=== PATIENT | female | born 1965 ===

== ENCOUNTER 2018-12-30 19:03 | Inpatient (IN) | payer MEDICAID ==
[2018-12-30 19:41] VITALS: BMI 60.0
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
[2018-12-30 21:39] LABS: MEAN CELL VOLUME 84.2 fl (80.0-105.0); MEAN CORPUSCULAR HEMOGLOBIN 27.3 pg (25.0-35.0); MEAN CORPUSCULAR HGB CONC 32.4 g/dl (31.0-37.0); MEAN PLATELET VOLUME 11.4 fl (7.0-11.0); RBC 4.76 10^6/uL (3.5-6.1); RED CELL DISTRIBUTION WIDTH 13.7 % (11.5-14.5); WHITE BLOOD COUNT 8.8 10^3/uL (4.5-11.0)
[2018-12-30 21:52] LABS: ALB/GLOB RATIO 1.1 (1.1-1.8); ALBUMIN 4.1 g/dL (3.0-4.8); ALT/SGPT 11 U/L (7-56); AST/SGOT 24 U/L (14-36); BLOOD UREA NITROGEN 20 mg/dL (7-21); CALCIUM 9.4 mg/dL (8.4-10.5); GFR NON-AFRICAN AMERICAN > 60
[2018-12-30 22:20] LABS: BENZODIAZEPINES, UR NEGATIVE (NEGATIVE)
[2018-12-30 22:24] LABS: BARBITURATES, UR NEGATIVE (NEGATIVE); OPIATES, UR NEGATIVE (NEGATIVE); PHENCYCLIDINE, UR NEGATIVE (NEGATIVE)
[2018-12-31 03:13] LABS: PH,URINE 6.5 (4.7-8.0); URINE BILIRUBIN NEGATIVE (NEGATIVE); URINE BLOOD NEGATIVE (NEGATIVE); URINE GLUCOSE (UA) NEGATIVE (NEGATIVE); URINE LEUKOCYTE ESTERASE NEGATIVE Leu/uL (NEGATIVE); URINE PROTEIN NEGATIVE mg/dL (<30 mg/dL); URINE UROBILINOGEN 0.2 E.U./dL (<1 E.U./dL)
[2018-12-31 03:17] LABS: URINE APPEARANCE CLEAR (CLEAR); URINE COLOR YELLOW (YELLOW)
[2018-12-31] MEDS ORDERED: Magnesium Hydroxide Susp 30 ml UD PO PRN (03:34)
[2018-12-31] MEDS ORDERED: Alum-Mag Hydrox-Simethicone Susp (30 mL) PO PRN (03:34)
--- NOTE | 2018-12-31 04:18 | PCM.BM ---
<Rosmery Nelson - Last Filed: 12/31/18 04:15> Treatment Plan Problems - Problems identified on initial assessmt Ineffective Coping Date Initiated: 12/31/18 Time Initiated: 04:16 Assessment reference: NA Status: Active High risk of Violence Date Initiated: 12/31/18 Time Initiated: 04:17 Assessment reference: NA Status: Active Auditory Hallucination Date Initiated: 12/31/18 Time Initiated: 04:17 Assessment reference: NA Status: Active Visiual Hallucination Date Initiated: 12/31/18 Time Initiated: 04:18 Assessment reference: NA Status: Active Self Care Deficit Date Initiated: 12/31/18 Time Initiated: 04:19 Assessment reference: NA Status: Active <Cynthia Rush - Last Filed: 12/31/18 10:25> - Diagnosis (1) Schizoaffective disorder Status: Acute Interventions: Zoloft 150 mg po daily for depression and anxiety (recently increased from 100 mg po daily on 12/12/18) * Will not restart risperdal, will start Abilify 5 mg po HS as this will help with mood control and depression. * Klonopin 0.5 mg po AMHS for anxiety prn. * Trazodone 100 mg po HS for insomnia 12/31/18 10:25 <Ophelia Wong - Last Filed: 01/03/19 10:31>
[2018-12-31 04:28] VITALS: O2SAT 97
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
[2018-12-31 07:54] LABS: GLUCOSE,FASTING 124 mg/dL (65-110); HDL CHOLESTEROL 46 mg/dL (29-60)
[2018-12-31 08:05] LABS: LDL CHOLESTEROL 86 mg/dL (0-129)
--- NOTE | 2018-12-31 08:24 | RAD ---
Date of service: 12/30/2018 HISTORY: medical clearance COMPARISON: No prior. TECHNIQUE: 1 view obtained. FINDINGS: LUNGS: No active pulmonary disease. PLEURA: No significant pleural effusion identified, no pneumothorax apparent. CARDIOVASCULAR: No aortic atherosclerotic calcification present. Normal cardiac size. No pulmonary vascular congestion. OSSEOUS STRUCTURES: No significant abnormalities. VISUALIZED UPPER ABDOMEN: Normal. OTHER FINDINGS: None. IMPRESSION: No active disease.
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
[2018-12-31] MEDS ORDERED: Dextrose 50% SYRINGE Inj (50 ml) IV PRN (11:49)
[2018-12-31] MEDS ORDERED: Albuterol-Ipratrop 3 mg / 0.5 (3 ml) UD IH PRN (11:50)
[2018-12-31] MEDS ORDERED: Albuterol HFA 90 mcg/actuation (8 g) IH PRN (11:52)
[2018-12-31] MEDS: Insulin Lispro (humaLOG) LOW Coverage SC SCH ×2 (16:47→22:16)
[2018-12-31] MEDS: Calcium-Vit D 250 mg-125 Units Tab UD PO SCH (17:10)
--- NOTE | 2018-12-31 18:59 | CARD ---
APPROVED REPORT Date of service: 12/30/2018 EKG Measurement Heart [id number] <Conclusion> Normal sinus rhythm Normal ECG
[2019-01-01 07:37] LABS: BASO # 0.04 K/mm3 (0.0-2.0); BASO % 0.6 % (0.0-3.0); EOS # 0.2 (0.0-0.7); EOS % 2.9 % (1.5-5.0); HEMOGLOBIN 12.3 g/dL (12.0-16.0); LYMPH # 2.7 (1.2-3.4); LYMPH % 41.5 % (22.0-35.0); MEAN CELL VOLUME 85.1 fl (80.0-105.0); MEAN CORPUSCULAR HEMOGLOBIN 26.9 pg (25.0-35.0); MEAN CORPUSCULAR HGB CONC 31.6 g/dl (31.0-37.0); MONO # 0.4 (0.1-0.6); MONO % 5.9 % (1.0-6.0); RBC 4.57 10^6/uL (3.5-6.1); RED CELL DISTRIBUTION WIDTH 13.8 % (11.5-14.5); WHITE BLOOD COUNT 6.6 10^3/uL (4.5-11.0)
[2019-01-01 07:58] LABS: LDL CHOLESTEROL 89 mg/dL (0-129)
[2019-01-01 07:59] LABS: ALB/GLOB RATIO 1.1 (1.1-1.8); ALT/SGPT 19 U/L (7-56); AST/SGOT 21 U/L (14-36); BLOOD UREA NITROGEN 19 mg/dL (7-21); CALCIUM 9.5 mg/dL (8.4-10.5); GFR NON-AFRICAN AMERICAN > 60; HDL CHOLESTEROL 44 mg/dL (29-60)
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
[2019-01-01] MEDS: Insulin Lispro (humaLOG) LOW Coverage SC SCH ×4 (09:41→22:00)
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
[2019-01-01] MEDS: Cholecalciferol 1,000 INTLU TAB PO SCH (11:15)
[2019-01-01] MEDS: Calcium-Vit D 250 mg-125 Units Tab UD PO SCH ×2 (11:40→17:28)
[2019-01-01] MEDS: Nystatin 100,000 Units/gm Topical Pow(15 gm) TOP SCH (12:15)
[2019-01-01] MEDS: Insulin Detemir 100 units/ml Vial (Levemir) SC SCH (16:40)
[2019-01-02] MEDS: Calcium-Vit D 250 mg-125 Units Tab UD PO SCH ×2 (07:13→16:59)
[2019-01-02] MEDS ORDERED: Insulin Lispro (HUMAlog) HIGH Coverage SC SCH (07:30)
[2019-01-02] MEDS: Insulin Lispro (humaLOG) LOW Coverage SC SCH ×4 (08:00→21:16)
[2019-01-02] MEDS: Cholecalciferol 1,000 INTLU TAB PO SCH (08:48)
[2019-01-02] MEDS: Nystatin 100,000 Units/gm Topical Pow(15 gm) TOP SCH (09:13)
[2019-01-02] MEDS: Insulin Detemir 100 units/ml Vial (Levemir) SC SCH ×2 (10:30→16:52)
[2019-01-02] MEDS: Insulin Lispro 1 UNITS/0.01 ML SC SCH ×2 (12:33→16:58)
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
[2019-01-03] MEDS: Calcium-Vit D 250 mg-125 Units Tab UD PO SCH ×3 (06:09→17:29)
[2019-01-03 07:18] VITALS: RESP 20
[2019-01-03] MEDS: Cholecalciferol 1,000 INTLU TAB PO SCH (10:15)
[2019-01-03] MEDS: Insulin Detemir 100 units/ml Vial (Levemir) SC SCH ×2 (10:17→17:27)
[2019-01-03] MEDS: Insulin Lispro 1 UNITS/0.01 ML SC SCH ×3 (10:18→17:29)
[2019-01-03] MEDS: Insulin Lispro (humaLOG) LOW Coverage SC SCH ×4 (10:19→21:34)
[2019-01-03] MEDS: Nystatin 100,000 Units/gm Topical Pow(15 gm) TOP SCH (10:20)
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
[2019-01-03 18:03] LABS: URINE BILIRUBIN NEGATIVE (NEGATIVE); URINE BLOOD NEGATIVE (NEGATIVE); URINE GLUCOSE (UA) NEGATIVE (NEGATIVE); URINE LEUKOCYTE ESTERASE TRACE Leu/uL (NEGATIVE); URINE PROTEIN NEGATIVE mg/dL (<30 mg/dL); URINE UROBILINOGEN 0.2 E.U./dL (<1 E.U./dL)
[2019-01-03 18:05] LABS: URINE APPEARANCE CLEAR (CLEAR); URINE COLOR LIGHT YELLOW (YELLOW)
[2019-01-04] MEDS: Cholecalciferol 1,000 INTLU TAB PO SCH (09:23)
[2019-01-04] MEDS: Insulin Detemir 100 units/ml Vial (Levemir) SC SCH ×2 (09:24→17:13)
[2019-01-04] MEDS: Calcium-Vit D 250 mg-125 Units Tab UD PO SCH ×2 (09:24→17:11)
[2019-01-04] MEDS: Insulin Lispro (humaLOG) LOW Coverage SC SCH ×4 (09:25→22:33)
[2019-01-04] MEDS: Insulin Lispro 1 UNITS/0.01 ML SC SCH ×3 (09:25→17:12)
[2019-01-04] MEDS: Nystatin 100,000 Units/gm Topical Pow(15 gm) TOP SCH (09:26)
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
--- NOTE | 2019-01-04 19:58 | CON ---
DATE: 01/02/2019 ORTHOPEDIC CONSULTATION REPORT LOCATION: Room 513, bed 1. HISTORY OF PRESENT ILLNESS: The patient is a 53-year-old female, complaining of weakness of her left lower extremity with evidence of postop fasciotomy from approximately three years ago at [facility] for compartment syndrome resulting in; 1. A foot that is contracted with tignness of the heel cord.. 2. It is in an inverted position from imbalance of the dorsiflexor muscles of the left foot and this has a tight heel cord also. I am going to send her to physical therapy as she likes to use the wheelchair too much and she is even getting weaker. So we are going to ask the therapist to do stretching exercises and strengthening exercises to her left lower extremity. At the same time, try to get her fit with a dropfoot brace from Physical Therapy and this is going to take a while because eventually she did nothing else. She is going to need tenden transfer to fix the drop foot of her left foot. 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 made symmetric and in function that is causing inversion of the foot and dorsiflexion and a tight heel cord. PLAN: We will try to help with the therapy and a dropfoot brace. in the future she may consider tendon transfer or a fuseion of the lt ankle because of her weight of obeasity. Boo Vanessa DO [facility]
[2019-01-05 07:12] VITALS: TEMP 98.2
[2019-01-05] MEDS: Insulin Lispro (humaLOG) LOW Coverage SC SCH ×4 (09:18→22:06)
[2019-01-05] MEDS: Insulin Lispro 1 UNITS/0.01 ML SC SCH ×3 (09:27→17:33)
[2019-01-05] MEDS: Insulin Detemir 100 units/ml Vial (Levemir) SC SCH ×2 (10:28→17:35)
[2019-01-05] MEDS: Calcium-Vit D 250 mg-125 Units Tab UD PO SCH ×2 (10:32→17:36)
[2019-01-05] MEDS: Cholecalciferol 1,000 INTLU TAB PO SCH (10:34)
[2019-01-05] MEDS: Nystatin 100,000 Units/gm Topical Pow(15 gm) TOP SCH (10:43)
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
--- NOTE | 2019-01-05 12:28 | RAD ---
Date of service: 01/05/2019 PROCEDURE: Bilateral knees HISTORY: pain knees COMPARISON: TECHNIQUE: Four views FINDINGS: There is joint space narrowing in the medial compartment of the left knee. There is severe patellofemoral degeneration. Multiple bone fragments are also seen in the posterior aspect of the knee joint. Severe patellofemoral degeneration is seen in the right knee. Moderate degenerative changes are seen in the medial and lateral compartments. IMPRESSION: Bilateral osteoarthritis especially in the patellofemoral joint
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
[2019-01-06] MEDS: Insulin Lispro (humaLOG) LOW Coverage SC SCH ×3 (08:28→17:16)
[2019-01-06] MEDS: Insulin Lispro 1 UNITS/0.01 ML SC SCH ×3 (08:50→17:16)
[2019-01-06] MEDS: Cholecalciferol 1,000 INTLU TAB PO SCH (08:53)
[2019-01-06] MEDS: Calcium-Vit D 250 mg-125 Units Tab UD PO SCH ×2 (08:54→17:20)
[2019-01-06] MEDS: Nystatin 100,000 Units/gm Topical Pow(15 gm) TOP SCH (09:24)
[2019-01-06] MEDS: Insulin Detemir 100 units/ml Vial (Levemir) SC SCH ×2 (10:10→17:27)
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
[2019-01-07] MEDS: Insulin Lispro (humaLOG) LOW Coverage SC SCH ×5 (00:05→21:36)
[2019-01-07] MEDS: Insulin Detemir 100 units/ml Vial (Levemir) SC SCH ×2 (07:50→16:30)
[2019-01-07] MEDS: Insulin Lispro 1 UNITS/0.01 ML SC SCH ×3 (07:55→16:30)
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
[2019-01-07] MEDS: Nystatin 100,000 Units/gm Topical Pow(15 gm) TOP SCH (08:50)
[2019-01-07] MEDS: Cholecalciferol 1,000 INTLU TAB PO SCH (08:50)
[2019-01-07] MEDS: Calcium-Vit D 250 mg-125 Units Tab UD PO SCH ×2 (08:50→18:00)
[2019-01-07 10:08] VITALS: BP 130/80; PULSE 78
[2019-01-07] MEDS ORDERED: Magnesium Hydroxide Susp 30 ml UD PO PRN (15:42)
[2019-01-07] MEDS ORDERED: ACETAMINOPHEN PO PRN (15:42)
[2019-01-07] MEDS ORDERED: Albuterol HFA 90 mcg/actuation (8 g) IH SCH (16:00)
[2019-01-07] MEDS ORDERED: [UNRECOGNIZED DRUG - OTHER] PO SCH (16:00)
[2019-01-07] MEDS ORDERED: VITAMIN D3 PO SCH (16:00)
[2019-01-07] MEDS ORDERED: CALCIUM CARBONATE PO SCH (16:00)
[2019-01-08] MEDS ORDERED: Pantoprazole 40 mg EC Tab PO SCH (06:00)
[2019-01-08] MEDS ORDERED: Multivitamin With Minerals Tab PO SCH (08:00)
[2019-01-08] MEDS ORDERED: Non Formulary Medication (Ferrous Sulfate [Feosol] 1 TAB) PO SCH (08:00)
--- NOTE | 2019-01-09 07:39 | PN ---
DATE: 01/07/2019 SUBJECTIVE: A 53-year-old female in room [address] Hyde's service. She is seen by me for the inverting of the right foot from muscle imbalance from having a fasciotomy done for compartment syndrome couple of years ago and now her foot is weak with decreased ability to dorsiflex and montserrat. I told her since she is already at a rehab facility at [place], she should present herself where the surgery was done for the right leg fasciotomy in [facility] and they would be the best service to correct the imbalance of the right foot from tendon and nerve injury from the fasciotomy done a couple of years ago. She may need either a tendon transfer or fusion of the ankle and foot, but that they would be able to decide better when she goes to [facility] on the Orthopedic service when she is released from [facility]. Boo Vanessa DO
--- NOTE | 2019-01-09 13:41 | PCM.PYCHDC ---
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 0.6 Lymph # (Auto) 2.7 Sutter # (Auto) 0.4 Eos # (Auto) 0.2 Baso # (Auto) 0.04 Absolute Neuts (auto) 3.24 Sodium Potassium Chloride Carbon Dioxide Anion Gap BUN Creatinine Est GFR ( Amer) Est GFR (Non-Af Amer) POC Glucose (mg/dL) Random Glucose Calcium Phosphorus Magnesium Total Bilirubin AST ALT Alkaline Phosphatase Total Protein Albumin Globulin Albumin/Globulin Ratio Triglycerides Cholesterol LDL Cholesterol Direct HDL Cholesterol RPR Laboratory Tests 12/30/18 12/30/18 12/30/18 20:55 21:30 21:30 WBC 8.8 RBC 4.76 Hgb 13.0 Hct 40.1 MCV 84.2 MCH 27.3 MCHC 32.4 RDW 13.7 Plt Count 186 MPV 11.4 H Sodium 141 Potassium 4.4 Chloride 107 Carbon Dioxide 24 Anion Gap 15 BUN 20 Creatinine 0.9 Est GFR ( Amer) > 60 Est GFR (Non-Af Amer) > 60 Random Glucose 145 H Fasting Glucose Calcium 9.4 Total Bilirubin 0.3 AST 24 ALT 11 Alkaline Phosphatase 74 Total Protein 7.8 Albumin 4.1 Globulin 3.7 Albumin/Globulin Ratio 1.1 Triglycerides Cholesterol LDL Cholesterol Direct HDL Cholesterol TSH 3rd Generation Urine Color Urine Appearance Urine pH Ur Specific [place] Urine Protein Urine Glucose (UA) Urine Ketones Urine Blood Urine Nitrate Urine Bilirubin Urine Urobilinogen Ur Leukocyte Esterase Urine Opiates Screen Negative Urine Methadone Screen Negative Ur Barbiturates Screen Negative Ur Phencyclidine Scrn Negative Ur Amphetamines Screen Negative U Benzodiazepines Scrn Negative U Oth Cocaine Metabols Negative U Cannabinoids Screen Negative Alcohol, Quantitative 12/30/18 12/31/18 12/31/18 21:30 03:00 07:20 WBC RBC Hgb Hct MCV MCH MCHC RDW Plt Count MPV Sodium Potassium Chloride Carbon Dioxide Anion Gap BUN Creatinine Est GFR ( Amer) Est GFR (Non-Af Amer) Random Glucose Fasting Glucose 124 H Calcium Total Bilirubin AST ALT Alkaline Phosphatase Total Protein Albumin Globulin Albumin/Globulin Ratio Triglycerides 128 Cholesterol 164 LDL Cholesterol Direct 86 HDL Cholesterol 46 TSH 3rd Generation Urine Color Yellow Urine Appearance Clear Urine pH 6.5 Ur Specific [place] 1.015 Urine Protein Negative Urine Glucose (UA) Negative Urine Ketones Negative Urine Blood Negative Urine Nitrate Negative Urine Bilirubin Negative Urine Urobilinogen 0.2 Ur Leukocyte Esterase Negative Urine Opiates Screen Urine Methadone Screen Ur Barbiturates Screen Ur Phencyclidine Scrn Ur Amphetamines Screen U Benzodiazepines Scrn U Oth Cocaine Metabols U Cannabinoids Screen Alcohol, Quantitative < 10 12/31/18 07:20 WBC RBC Hgb Hct MCV MCH MCHC RDW Plt Count MPV Sodium Potassium Chloride Carbon Dioxide Anion Gap BUN Creatinine Est GFR ( Amer) Est GFR (Non-Af Amer) Random Glucose Fasting Glucose Calcium Total Bilirubin AST ALT Alkaline Phosphatase Total Protein Albumin Globulin Albumin/Globulin Ratio Triglycerides Cholesterol LDL Cholesterol Direct HDL Cholesterol TSH 3rd Generation 2.38 Urine Color Urine Appearance Urine pH Ur Specific [place] Urine Protein Urine Glucose (UA) Urine Ketones Urine Blood Urine Nitrate Urine Bilirubin Urine Urobilinogen Ur Leukocyte Esterase Urine Opiates Screen Urine Methadone Screen Ur Barbiturates Screen Ur Phencyclidine Scrn Ur Amphetamines Screen U Benzodiazepines Scrn U Oth Cocaine Metabols U Cannabinoids Screen Alcohol, Quantitative - Smoking Cessation Smoking Cessation Medication prescribed: No - Antipsychotic Medications Pt discharged on 2 or more routine antipsychotic medications: No
== END 2019-01-07 18:38 | disposition short-term general hospital (02) | DRG 430 ==
LOC: ED 19:03 → ERH 12-31 00:17 → PSYC 12-31 03:29
PROVIDERS: ADMIT Psychiatry & Neurology Psychiatry; ATTEND Psychiatry & Neurology Psychiatry
DX: F25.9 Schizoaffective disorder, unspecified (principal); N39.0 Urinary tract infection, site not specified; B96.1 Klebsiella pneumoniae [K. pneumoniae] as the cause of diseases classified elsewhere; E87.2 Acidosis; J44.9 Chronic obstructive pulmonary disease, unspecified; R56.9 Unspecified convulsions; F31.9 Bipolar disorder, unspecified; D50.9 Iron deficiency anemia, unspecified; E55.9 Vitamin D deficiency, unspecified; E11.9 Type 2 diabetes mellitus without complications; E66.01 Morbid (severe) obesity due to excess calories; E78.00 Pure hypercholesterolemia, unspecified; E78.5 Hyperlipidemia, unspecified; F10.20 Alcohol dependence, uncomplicated; F41.9 Anxiety disorder, unspecified; G47.00 Insomnia, unspecified; I10 Essential (primary) hypertension; K59.00 Constipation, unspecified; M21.379 Foot drop, unspecified foot; S61.519A Laceration without foreign body of unspecified wrist, initial encounter; T79.A21A Traumatic compartment syndrome of right lower extremity, initial encounter; Z79.4 Long term (current) use of insulin; Z79.899 Other long term (current) drug therapy; Z82.49 Family history of ischemic heart disease and other diseases of the circulatory system; Z91.5 Personal history of self-harm; Z98.84 Bariatric surgery status; Z98.891 History of uterine scar from previous surgery; Z99.3 Dependence on wheelchair

== ENCOUNTER 2019-01-07 15:17 | Observation (INO) | payer MEDICAID ==
[2019-01-07 15:26] VITALS: BMI 53.2
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
[2019-01-07 16:01] LABS: BASO # 0.03 K/mm3 (0.0-2.0); BASO % 0.3 % (0.0-3.0); EOS # 0.2 (0.0-0.7); EOS % 1.9 % (1.5-5.0); HEMOGLOBIN 12.4 g/dL (12.0-16.0); LYMPH # 3.4 (1.2-3.4); LYMPH % 37.7 % (22.0-35.0); MEAN CELL VOLUME 84.7 fl (80.0-105.0); MEAN CORPUSCULAR HEMOGLOBIN 26.8 pg (25.0-35.0); MEAN CORPUSCULAR HGB CONC 31.6 g/dl (31.0-37.0); MEAN PLATELET VOLUME 10.7 fl (7.0-11.0); MONO # 0.6 (0.1-0.6); MONO % 6.8 % (1.0-6.0); RBC 4.63 10^6/uL (3.5-6.1); RED CELL DISTRIBUTION WIDTH 13.6 % (11.5-14.5)
[2019-01-07 16:06] LABS: ALB/GLOB RATIO 1.2 (1.1-1.8); ALBUMIN 4.2 g/dL (3.0-4.8); ALT/SGPT 22 U/L (7-56); AST/SGOT 39 U/L (14-36); BLOOD UREA NITROGEN 14 mg/dL (7-21); CALCIUM 9.7 mg/dL (8.4-10.5); GFR NON-AFRICAN AMERICAN 58
[2019-01-07] MEDS ORDERED: Magnesium Hydroxide Susp 30 ml UD PO PRN ×2 (16:44→17:09)
[2019-01-07] MEDS ORDERED: Albuterol-Ipratrop 3 mg / 0.5 (3 ml) UD IH PRN ×2 (16:44→17:08)
[2019-01-07 16:49] LABS: URINE APPEARANCE CLEAR (CLEAR); URINE BILIRUBIN NEGATIVE (NEGATIVE); URINE BLOOD NEGATIVE (NEGATIVE); URINE COLOR YELLOW (YELLOW); URINE GLUCOSE (UA) NEGATIVE (NEGATIVE); URINE LEUKOCYTE ESTERASE NEGATIVE Leu/uL (NEGATIVE); URINE PROTEIN NEGATIVE mg/dL (<30 mg/dL); URINE UROBILINOGEN 0.2 E.U./dL (<1 E.U./dL)
[2019-01-07] MEDS ORDERED: Multivitamin Therapeutic Tab PO STA (16:49)
[2019-01-07] MEDS ORDERED: Alum-Mag Hydrox-Simethicone Susp (30 mL) PO STA (16:49)
[2019-01-07] MEDS ORDERED: Alum-Mag Hydrox-Simethicone Susp (30 mL) PO PRN (17:01)
--- NOTE | 2019-01-07 17:15 | CT ---
Date of service: 01/07/2019 PROCEDURE: CT HEAD WITHOUT CONTRAST. HISTORY: seizure COMPARISON: None available. TECHNIQUE: Axial computed tomography images were obtained through the head/brain without intravenous contrast. Radiation dose: Total exam DLP = 1079.56 mGy-cm. This CT exam was performed using one or more of the following dose reduction techniques: Automated exposure control, adjustment of the mA and/or kV according to patient size, and/or use of iterative reconstruction technique. FINDINGS: Examination limited by habitus. HEMORRHAGE: No intracranial hemorrhage. BRAIN: Mild bilateral frontal atrophy versus small subdural hygromas. No mass effect or edema. Mccracken-white matter differentiation appears intact. Please note that MRI with diffusion imaging is more sensitive in the detection of acute ischemic event. VENTRICLES: No hydrocephalus. CALVARIUM: Unremarkable. PARANASAL SINUSES: Probable large left maxillary sinus mucosal polyp/cyst. The visualized paranasal sinuses appear otherwise clear. MASTOID AIR CELLS: Unremarkable as visualized. No inflammatory changes. OTHER FINDINGS: None. IMPRESSION: Mild frontal atrophy versus mild subdural hygromas. Probable large left maxillary sinus mucosal polyp/cyst.
--- NOTE | 2019-01-07 17:17 | RAD ---
HISTORY: cp COMPARISON: Chest x-ray performed 12/30/18 TECHNIQUE: Chest, one view. FINDINGS: LUNGS: No focal consolidation. Please note that chest x-ray has limited sensitivity for the detection of pulmonary masses. PLEURA: No significant pleural effusion identified. No definite pneumothorax . CARDIOVASCULAR: Heart size appears within normal limits. OSSEOUS STRUCTURES: Degenerative changes of the spine. VISUALIZED UPPER ABDOMEN: Unremarkable. OTHER FINDINGS: None. IMPRESSION: No focal consolidation.
[2019-01-07 17:28] LABS: CK-MB 0.8 ng/mL (0.0-3.6)
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
[2019-01-07 19:09] LABS: TROPONIN I < 0.01 ng/mL
[2019-01-07] MEDS: Insulin Reg-MEDIUM-Coverage SC SCH (22:05)
[2019-01-07] MEDS ORDERED: Influenza Vaccine 60 mcg/0.5 mL SYR (4YR UP) IM ONE (23:20)
[2019-01-07] MEDS ORDERED: Pneumococcal 23-Valent Vaccine IM ONE (23:20)
--- NOTE | 2019-01-08 04:18 | PCM.RRT ---
<John Osuna - Last Filed: 01/08/19 04:15> RAC SPECIALIST Nurse Assessment - Situation Date: 01/07/19 Time RAC SPECIALIST was called: 15:14 RAC SPECIALIST Responder Arrival Time: 15:15 RAC SPECIALIST Location:: [address] [place] [address] Room Number: 513 RAC SPECIALIST Reason for Call: Change in Mental Status RAC SPECIALIST Called By: RN - Respiratory Oxygen Delivery Method: Room Air - Vital Signs Vital Sign: 112/70, 88, 80, 97%, T99 - [place] Coma Scale Coma Scale Eye Opening: Spontaneous Coma Scale Motor: Obeys Commands Movement Coma Scale Verbal: Oriented - Time RAC SPECIALIST Ended Time RAC SPECIALIST Ended: 04:16 I.Reason for RAC SPECIALIST - A) Acute Change in Patient: (Select all that apply): Acute change in mental status (Pt was unresponsive to nurses, now answering and following commands) - Neurological Status (Select all that apply): Responsive - Respiratory Oxygen Delivery Method: Room Air - Constitutional Appears: No Acute Distress - Head Head Exam: ATRAUMATIC, NORMAL INSPECTION - Eyes Eye Exam: EOMI, Normal appearance - Respiratory Exam Respiratory Exam: NORMAL BREATHING PATTERN - Cardiovascular Exam Cardiovascular Exam: RRR, +S1, +S2 - GI/Abdominal Exam GI & Abdominal Exam: Soft. absent: Tenderness - Neurological Exam Neurological Exam: Alert, Awake, CN II-XII Intact, Oriented x3 - Extremities Exam Extremities Exam: Full ROM Plan - Assessment of Findings&Treatment Plan end of RAC SPECIALIST, continue to monitor on tele <Eren Wills - Last Filed: 01/08/19 06:48> RAC SPECIALIST Nurse Assessment - Vital Signs Vital Sign: Rapid Response Vital Sign Blood Pressure 108/57 Pulse Rate 82 Respiratory Rate 18 Temperature 98.1 F Oxygen Saturation 99 - Vital Signs at end of RAC SPECIALIST Vital Signs at end of RAC SPECIALIST: Rapid Response End Vital Sign Blood Pressure 115/56 Pulse Rate 81 Respiratory Rate 20 Temperature 98.1 F Attending/Attestation - Attestation I have personally seen and examined this patient.: No I have fully participated in the care of the patient.: No I have reviewed all pertinent clinical information, including history, physical exam and plan: No
[2019-01-08 08:04] LABS: BASO # 0.02 K/mm3 (0.0-2.0); BASO % 0.4 % (0.0-3.0); EOS # 0.2 (0.0-0.7); EOS % 3.6 % (1.5-5.0); HEMOGLOBIN 11.5 g/dL (12.0-16.0); LYMPH # 2.8 (1.2-3.4); MEAN CORPUSCULAR HEMOGLOBIN 26.6 pg (25.0-35.0); MEAN CORPUSCULAR HGB CONC 31.3 g/dl (31.0-37.0); MEAN PLATELET VOLUME 10.5 fl (7.0-11.0); MONO # 0.3 (0.1-0.6); RBC 4.32 10^6/uL (3.5-6.1); RED CELL DISTRIBUTION WIDTH 13.8 % (11.5-14.5); WHITE BLOOD COUNT 5.6 10^3/uL (4.5-11.0)
[2019-01-08] MEDS: Insulin Reg-MEDIUM-Coverage SC SCH ×4 (08:06→22:00)
[2019-01-08] MEDS: Multivitamin Therapeutic Tab PO SCH (08:07)
[2019-01-08 08:59] LABS: ALB/GLOB RATIO 1.2 (1.1-1.8); ALBUMIN 3.7 g/dL (3.0-4.8); ALT/SGPT 20 U/L (7-56); AST/SGOT 26 U/L (14-36); BLOOD UREA NITROGEN 13 mg/dL (7-21); CALCIUM 8.8 mg/dL (8.4-10.5); GFR NON-AFRICAN AMERICAN > 60
[2019-01-08] MEDS ORDERED: CALCIUM CITRATE PO SCH (10:00)
[2019-01-08] MEDS ORDERED: Non Formulary Medication (Ferrous Sulfate [Feosol] 1 TAB) PO SCH (10:00)
[2019-01-08] MEDS ORDERED: VITAMIN D3 PO SCH (10:00)
[2019-01-08] MEDS ORDERED: Non Formulary Medication (Omeprazole [Omeprazole] 1 CAP) PO SCH (10:00)
[2019-01-08] MEDS ORDERED: [UNRECOGNIZED DRUG - OTHER] PO SCH (10:00)
--- NOTE | 2019-01-08 10:17 | CARD ---
APPROVED REPORT Date of service: 01/07/2019 EKG Measurement Heart [id number] <Conclusion> Normal sinus rhythm Normal ECG
[2019-01-08] MEDS: Calcium-Vit D 250 mg-125 Units Tab UD PO SCH (10:43)
[2019-01-08] MEDS: Cholecalciferol 1,000 INTLU TAB PO SCH (10:44)
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
[2019-01-08] MEDS: Nystatin 100,000 Units/gm Cream(15 gm) TOP SCH (17:51)
--- NOTE | 2019-01-08 20:35 | CARD ---
APPROVED REPORT Date of service: 01/08/2019 EKG Measurement Heart [id number] <Conclusion> Normal sinus rhythm Minor NDSTT abnormalities Borderline ECG
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
--- NOTE | 2019-01-08 23:13 | CP.PCM.CON ---
History of Present Illness - History of Present Illness History of Present Illness: Neurology consult dicated. PLease see consult for full details. 53 yr old woman with extensive psychiatry history who has been having spells that result in passing out, and are currently being ruled out for epilepsy. PLan: 1. EEg. 2. If eeg is normal and is able to capture, events, then patient most likely has non epileptic events. [facility] Past Patient History - Infectious Disease Hx of Infectious Diseases: None - Past Social History Smoking Status: Never Smoked - CARDIAC Hx Hypertension: Yes - PULMONARY Hx Asthma: Yes Hx Tuberculosis: No - NEUROLOGICAL HX Cerebrovascular Accident: No Hx Seizures: No - HEENT Hx HEENT Problems: No Hx Cataracts: Yes - RENAL Hx Chronic Kidney Disease: No - ENDOCRINE/METABOLIC Hx Endocrine Disorders: No Hx Diabetes Mellitus Type 2: Yes - HEMATOLOGICAL/ONCOLOGICAL Hx Cancer: No - INTEGUMENTARY Hx Dermatological Problems: No - MUSCULOSKELETAL/RHEUMATOLOGICAL Hx Musculoskeletal Disorders: No Hx Unsteady Gait: Yes - GASTROINTESTINAL Hx Gastrointestinal Disorders: No - GENITOURINARY/GYNECOLOGICAL Hx Sexually Transmitted Disorders: No - PSYCHIATRIC Hx Substance Use: No - SURGICAL HISTORY Hx Section: Yes Hx Gastric Bypass Surgery: Yes - ANESTHESIA Hx Anesthesia: Yes Hx Anesthesia Reactions: No Hx Malignant Hyperthermia: No Meds Allergies/Adverse Reactions: Allergies Allergy/AdvReac Type Severity Reaction Status Date / Time No Known Allergies Allergy Verified 01/07/19 15:26 - Medications Medications: Current Medications Acetaminophen (Tylenol 325mg Tab) 650 mg PO Q6H PRN PRN Reason: Fever >100.4 F Last Admin: 01/08/19 18:03 Dose: 650 mg Al Hydrox/Mg Hydrox/Simethicone (Maalox Plus 30 Ml) 30 ml PO DAILY PRN PRN Reason: Indigestion / Heartburn Albuterol/Ipratropium (Duoneb 3 Mg/0.5 Mg (3 Ml) Ud) 3 ml IH Q2H PRN PRN Reason: Shortness of Breath Alprazolam (Xanax) 0.5 mg PO TID [facility]; Protocol Last Admin: 01/08/19 17:53 Dose: 0.5 mg Aspirin (Ecotrin) 81 mg PO DAILY [facility] Last Admin: 01/08/19 10:41 Dose: 81 mg Atorvastatin Calcium (Lipitor) 20 mg PO DIN [facility] Last Admin: 01/08/19 17:53 Dose: 20 mg Calcium/Vitamin D (Oscal-D 250 Mg-125 Units Tab) 1 tab PO DAILY [facility] Last Admin: 01/08/19 10:43 Dose: 1 tab Cholecalciferol (Vitamin D) 2,000 intlu PO DAILY [facility] Last Admin: 01/08/19 10:44 Dose: 2,000 intlu Ciprofloxacin (Cipro) 500 mg PO Q12 [facility]; Protocol Last Admin: 01/08/19 21:45 Dose: 500 mg Duloxetine HCl (Cymbalta) 30 mg PO BID [facility] Last Admin: 01/08/19 17:53 Dose: 30 mg Famotidine (Pepcid) 20 mg IVP BID [facility] Last Admin: 01/08/19 17:51 Dose: 20 mg Ferrous Sulfate (Feosol) 324 mg PO DAILY [facility] Last Admin: 01/08/19 10:44 Dose: 324 mg Folic Acid (Folic Acid) 1 mg PO DAILY [facility] Last Admin: 01/08/19 10:47 Dose: 1 mg Gabapentin (Neurontin) 300 mg PO TID [facility]; Protocol Last Admin: 01/08/19 17:52 Dose: 300 mg Heparin Sodium (Porcine) (Heparin) 5,000 units SC Q8 [facility]; Protocol Last Admin: 01/08/19 21:47 Dose: 5,000 units Insulin Human Regular (Humulin R Med) 0 units SC ACHS [facility]; Protocol Last Admin: 01/08/19 17:52 Dose: 7 units Lisinopril (Zestril) 2.5 mg PO DAILY [facility] Last Admin: 01/08/19 10:43 Dose: 2.5 mg Lorazepam (Ativan) 2 mg PO Q6 PRN; Protocol PRN Reason: Anxiety Magnesium Hydroxide (Milk Of Magnesia) 30 ml PO DAILY PRN PRN Reason: Constipation Metformin HCl (Glucophage) 500 mg PO BID [facility] Last Admin: 01/08/19 17:53 Dose: 500 mg Multivitamins (Thera Tab) 1 tab PO 0800 [facility] Last Admin: 01/08/19 08:07 Dose: 1 tab Nystatin (Mycostatin Cream) 0 ea TOP DAILY [facility] Last Admin: 01/08/19 17:51 Dose: 1 applic Quetiapine Fumarate (Seroquel) 100 mg PO HS [facility]; Protocol Last Admin: 01/08/19 21:46 Dose: 100 mg Sennosides (Senokot Tab) 8.6 mg PO DAILY PRN PRN Reason: Constipation Thiamine HCl (Vitamin B1 Tab) 100 mg PO DAILY [facility] Last Admin: 01/08/19 10:44 Dose: 100 mg Topiramate (Topamax) 100 mg PO HS [facility]; Protocol Last Admin: 01/08/19 21:45 Dose: 100 mg Topiramate (Topamax) 100 mg PO BID [facility]; Protocol Last Admin: 01/08/19 17:53 Dose: 100 mg Trazodone HCl (Desyrel) 50 mg PO HS [facility] Last Admin: 01/08/19 21:45 Dose: 50 mg Ziprasidone (Geodon Cap) 20 mg PO Q6 PRN; Protocol PRN Reason: Agitation Last Admin: 01/08/19 05:47 Dose: 20 mg Zolpidem Tartrate (Ambien) 5 mg PO HS PRN; Protocol PRN Reason: Insomnia Last Admin: 01/08/19 21:46 Dose: 5 mg Results - Vital Signs Recent Vital Signs: Last Vital Signs Temp 97.1 F L 01/08/19 18:00 Pulse 89 01/08/19 18:00 Resp 20 01/08/19 18:00 BP 123/77 01/08/19 18:00 Pulse Ox 96 01/08/19 18:00 - Labs Result Diagrams: 01/08/19 07:50 01/08/19 07:50 Labs: Laboratory Results - last 24 hr 01/08/19 01/08/19 01/08/19 04:10 07:31 07:50 WBC 5.6 D RBC 4.32 Hgb 11.5 L Hct 36.7 MCV 85.0 MCH 26.6 MCHC 31.3 RDW 13.8 Plt Count 162 MPV 10.5 Neut % (Auto) 41.0 L Lymph % (Auto) 49.0 H [place] % (Auto) 6.0 Eos % (Auto) 3.6 Baso % (Auto) 0.4 Lymph # (Auto) 2.8 [place] # (Auto) 0.3 Eos # (Auto) 0.2 Baso # (Auto) 0.02 Absolute Neuts (auto) 2.31 Sodium Potassium Chloride Carbon Dioxide Anion Gap BUN Creatinine Est GFR ( Amer) Est GFR (Non-Af Amer) POC Glucose (mg/dL) 175 H 220 H Random Glucose Calcium Phosphorus Magnesium Total Bilirubin AST ALT Alkaline Phosphatase Total Protein Albumin Globulin Albumin/Globulin Ratio 01/08/19 01/08/19 01/08/19 07:50 07:50 11:33 WBC RBC Hgb Hct MCV MCH MCHC RDW Plt Count MPV Neut % (Auto) Lymph % (Auto) [place] % (Auto) Eos % (Auto) Baso % (Auto) Lymph # (Auto) [place] # (Auto) Eos # (Auto) Baso # (Auto) Absolute Neuts (auto) Sodium 139 Potassium 3.6 Chloride 107 Carbon Dioxide 24 Anion Gap 11 BUN 13 Creatinine 0.9 Est GFR ( Amer) > 60 Est GFR (Non-Af Amer) > 60 POC Glucose (mg/dL) 183 H Random Glucose 202 H Calcium 8.8 Phosphorus 3.8 Magnesium 1.7 Total Bilirubin 0.2 AST 26 ALT 20 Alkaline Phosphatase 68 Total Protein 6.6 Albumin 3.7 Globulin 2.9 Albumin/Globulin Ratio 1.2
[2019-01-09 07:09] LABS: BASO # 0.02 K/mm3 (0.0-2.0); BASO % 0.4 % (0.0-3.0); EOS # 0.2 (0.0-0.7); EOS % 4.5 % (1.5-5.0); HEMOGLOBIN 11.5 g/dL (12.0-16.0); LYMPH # 2.8 (1.2-3.4); LYMPH % 51.6 % (22.0-35.0); MEAN CELL VOLUME 85.8 fl (80.0-105.0); MEAN CORPUSCULAR HEMOGLOBIN 26.7 pg (25.0-35.0); MEAN CORPUSCULAR HGB CONC 31.2 g/dl (31.0-37.0); MEAN PLATELET VOLUME 10.9 fl (7.0-11.0); MONO # 0.3 (0.1-0.6); MONO % 5.6 % (1.0-6.0); RBC 4.3 10^6/uL (3.5-6.1); RED CELL DISTRIBUTION WIDTH 13.9 % (11.5-14.5); WHITE BLOOD COUNT 5.4 10^3/uL (4.5-11.0)
[2019-01-09 07:17] LABS: ALB/GLOB RATIO 1.2 (1.1-1.8); ALBUMIN 3.4 g/dL (3.0-4.8); ALT/SGPT 25 U/L (7-56); AST/SGOT 28 U/L (14-36); BLOOD UREA NITROGEN 13 mg/dL (7-21); CALCIUM 8.4 mg/dL (8.4-10.5); GFR NON-AFRICAN AMERICAN > 60
[2019-01-09] MEDS ORDERED: Potassium Chloride 40 mEq/30 ml LIQ UD PO ONE (07:27)
[2019-01-09] MEDS: Multivitamin Therapeutic Tab PO SCH (08:34)
[2019-01-09] MEDS: Insulin Reg-MEDIUM-Coverage SC SCH ×3 (08:34→17:20)
--- NOTE | 2019-01-09 09:55 | CP.PCM.PN ---
Subjective - Date & Time of Evaluation Date of Evaluation: 01/09/19 Time of Evaluation: 07:40 - Subjective Subjective: Eliu Ji DO, PGY-2: Neurology Progress Note for Dr. Darden Patient was seen and examined at bedside. Patient denies having any seizures or seizure like activity. Patient reports yesterday she thought she was going to have a seizure, but didn't. The rapid response note was noted. She denies any chest pain, nausea, vomiting, diarrhea, or unilateral weakness. Chart review indicates no adverse events overnight. Objective - Vital Signs/Intake and Output Vital Signs (last 24 hours): Temp Pulse Resp BP Pulse Ox 97.4 F L 66 20 133/80 97 01/09/19 06:00 01/09/19 06:00 01/09/19 06:00 01/09/19 06:00 01/09/19 06:00 Intake and Output: 01/09/19 01/09/19 06:59 18:59 Intake Total 300 Output Total 300 Balance 0 - Medications Medications: Current Medications Acetaminophen (Tylenol 325mg Tab) 650 mg PO Q6H PRN PRN Reason: Fever >100.4 F Last Admin: 01/08/19 18:03 Dose: 650 mg Al Hydrox/Mg Hydrox/Simethicone (Maalox Plus 30 Ml) 30 ml PO DAILY PRN PRN Reason: Indigestion / Heartburn Albuterol/Ipratropium (Duoneb 3 Mg/0.5 Mg (3 Ml) Ud) 3 ml IH Q2H PRN PRN Reason: Shortness of Breath Alprazolam (Xanax) 0.5 mg PO TID [facility]; Protocol Last Admin: 01/08/19 17:53 Dose: 0.5 mg Aspirin (Ecotrin) 81 mg PO DAILY [facility] Last Admin: 01/08/19 10:41 Dose: 81 mg Atorvastatin Calcium (Lipitor) 20 mg PO DIN [facility] Last Admin: 01/08/19 17:53 Dose: 20 mg Calcium/Vitamin D (Oscal-D 250 Mg-125 Units Tab) 1 tab PO DAILY [facility] Last Admin: 01/08/19 10:43 Dose: 1 tab Cholecalciferol (Vitamin D) 2,000 intlu PO DAILY [facility] Last Admin: 01/08/19 10:44 Dose: 2,000 intlu Ciprofloxacin (Cipro) 500 mg PO Q12 [facility]; Protocol Stop: 01/10/19 10:00 Last Admin: 01/08/19 21:45 Dose: 500 mg Duloxetine HCl (Cymbalta) 30 mg PO BID [facility] Last Admin: 01/08/19 17:53 Dose: 30 mg Famotidine (Pepcid) 20 mg IVP BID [facility] Last Admin: 01/08/19 17:51 Dose: 20 mg Ferrous Sulfate (Feosol) 324 mg PO DAILY [facility] Last Admin: 01/08/19 10:44 Dose: 324 mg Folic Acid (Folic Acid) 1 mg PO DAILY [facility] Last Admin: 01/08/19 10:47 Dose: 1 mg Gabapentin (Neurontin) 300 mg PO TID [facility]; Protocol Last Admin: 01/08/19 17:52 Dose: 300 mg Heparin Sodium (Porcine) (Heparin) 5,000 units SC Q8 [facility]; Protocol Last Admin: 01/09/19 05:58 Dose: 5,000 units Insulin Human Regular (Humulin R Med) 0 units SC ACHS [facility]; Protocol Last Admin: 01/09/19 08:34 Dose: 1 units Lisinopril (Zestril) 2.5 mg PO DAILY [facility] Last Admin: 01/08/19 10:43 Dose: 2.5 mg Lorazepam (Ativan) 2 mg PO Q6 PRN; Protocol PRN Reason: Anxiety Magnesium Hydroxide (Milk Of Magnesia) 30 ml PO DAILY PRN PRN Reason: Constipation Metformin HCl (Glucophage) 500 mg PO BID [facility] Last Admin: 01/08/19 17:53 Dose: 500 mg Multivitamins (Thera Tab) 1 tab PO 0800 [facility] Last Admin: 01/09/19 08:34 Dose: 1 tab Nystatin (Mycostatin Cream) 0 ea TOP DAILY [facility] Last Admin: 01/08/19 17:51 Dose: 1 applic Quetiapine Fumarate (Seroquel) 100 mg PO HS [facility]; Protocol Last Admin: 01/08/19 21:46 Dose: 100 mg Sennosides (Senokot Tab) 8.6 mg PO DAILY PRN PRN Reason: Constipation Thiamine HCl (Vitamin B1 Tab) 100 mg PO DAILY [facility] Last Admin: 01/08/19 10:44 Dose: 100 mg Topiramate (Topamax) 100 mg PO HS [facility]; Protocol Last Admin: 04/07/19 21:45 Dose: 100 mg Topiramate (Topamax) 100 mg PO BID [facility]; Protocol Last Admin: 01/08/19 17:53 Dose: 100 mg Trazodone HCl (Desyrel) 50 mg PO HS [facility] Last Admin: 01/08/19 21:45 Dose: 50 mg Ziprasidone (Geodon Cap) 20 mg PO Q6 PRN; Protocol PRN Reason: Agitation Last Admin: 01/08/19 05:47 Dose: 20 mg Zolpidem Tartrate (Ambien) 5 mg PO HS PRN; Protocol PRN Reason: Insomnia Last Admin: 01/08/19 21:46 Dose: 5 mg - Labs Labs: 01/09/19 06:30 01/09/19 06:30 - Constitutional Appears: Well, Non-toxic - Head Exam Head Exam: ATRAUMATIC, NORMOCEPHALIC - Eye Exam Eye Exam: EOMI, Normal appearance - Neck Exam Neck Exam: Normal Inspection - Respiratory Exam Respiratory Exam: NORMAL BREATHING PATTERN. absent: Accessory Muscle Use, Respiratory Distress - Extremities Exam Extremities Exam: Normal Inspection. absent: Calf Tenderness - Back Exam Back Exam: absent: CVA tenderness (L), CVA tenderness (R) - Neurological Exam Neurological Exam: Alert, Awake, CN II-XII Intact, Oriented x3. absent: Altered - Psychiatric Exam Psychiatric exam: Normal Affect, Normal Mood - Skin Skin Exam: Dry, Intact, Normal Color, Warm Assessment and Plan - Assessment and Plan (Free Text) Assessment: 53 year old woman with extensive psychiatry history who has been having spells that result in passing out, and are currently being ruled out for epilepsy. 1) Rule out epilepsy - CT head showed mild frontal atrophy versus mild subdural hygromas. 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 - No indication for initiating any AED at this time. Case was reviewed and discussed with attending physician, Dr. Darden
[2019-01-09] MEDS: Calcium-Vit D 250 mg-125 Units Tab UD PO SCH (10:40)
[2019-01-09] MEDS: Nystatin 100,000 Units/gm Cream(15 gm) TOP SCH (10:40)
[2019-01-09] MEDS: Cholecalciferol 1,000 INTLU TAB PO SCH (10:41)
--- NOTE | 2019-01-09 10:55 | PCM.EEG ---
Electroencephalogram Report - Electroencephalogram Report Procedure Date: 01/08/19 Condition of Recording: Awake, Drowsy Interpretation: This is a 16-channel EEG, 1-channel EKG performed with the patient awake and drowsy. Photic stimulation was performed as an activating procedure. A moderate amount of muscle and movement artifact activity was seen throughout the recording. With the patient awake (12:15), alpha activity at 8 cps was seen in the posterior regions. Alpha activity was well modulated by eye opening and eye closing. Alpha amplitude ranged between 30-70 mcv. Beta activity was seen in the frontal central region ranging between 18-25 Hz and amplitude ranged between 10-30 mcv. Photic stimulation was performed and was unremarkable. There were no significant asymmetries noted during wakefulness. With the patient drowsy (13:00), background activity became slower and theta activity predominated. There was no epileptiform activity seen. IMPRESSION: A normal awake and drowsy EEG. Impression: A normal awake and drowsy EEG.
[2019-01-09 12:11] VITALS: TEMP 98
[2019-01-09] MEDS ORDERED: Petrolatum Oint Foilpak (5 gm) TOP PRN (14:22)
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
[2019-01-09 17:42] VITALS: BP 137/84; PULSE 76; RESP 18; O2SAT 96
[2019-01-09] MEDS ORDERED: Silver Sulfadiazine 1% Cream (25 gm) TP SCH (18:00)
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
== END 2019-01-09 21:12 ==
LOC: ED 15:17 → ERH 17:29 → 2RNO 18:38
PROVIDERS: ADMIT Internal Medicine; ATTEND Internal Medicine
DX: G40.909 Epilepsy, unspecified, not intractable, without status epilepticus (principal); F41.9 Anxiety disorder, unspecified; I10 Essential (primary) hypertension; E11.9 Type 2 diabetes mellitus without complications; E78.00 Pure hypercholesterolemia, unspecified; E78.5 Hyperlipidemia, unspecified; E87.2 Acidosis; F10.20 Alcohol dependence, uncomplicated; F25.9 Schizoaffective disorder, unspecified; F31.9 Bipolar disorder, unspecified; N39.0 Urinary tract infection, site not specified; B96.1 Klebsiella pneumoniae [K. pneumoniae] as the cause of diseases classified elsewhere; Z79.4 Long term (current) use of insulin; Z79.82 Long term (current) use of aspirin; J45.909 Unspecified asthma, uncomplicated; J44.9 Chronic obstructive pulmonary disease, unspecified; D50.9 Iron deficiency anemia, unspecified; K59.00 Constipation, unspecified; E11.40 Type 2 diabetes mellitus with diabetic neuropathy, unspecified; R07.89 Other chest pain; Z82.49 Family history of ischemic heart disease and other diseases of the circulatory system; Z91.5 Personal history of self-harm; Z98.84 Bariatric surgery status; Z98.891 History of uterine scar from previous surgery
CPT/HCPCS: 36415; 70450; 71045; 80053; 81003; 81025; 82550; 82553; 82948; 83735; 84100; 84484; 85025; 93005; 96372; 96374; 96376; 99285; G0378; J1644; J3480

== ENCOUNTER 2019-01-09 21:12 | Inpatient (IN) | payer MEDICAID ==
[2019-01-09 21:40] VITALS: BMI 57.2
--- NOTE | 2019-01-10 00:48 | PCM.BM ---
<Rosmery Nelson - Last Filed: 01/10/19 00:45> Treatment Plan Problems - Problems identified on initial assessmt high risk sucidial Date Initiated: 01/10/19 Time Initiated: 00:45 Assessment reference: NA Status: Active Hopelessness/Helplessness Date Initiated: 01/10/19 Time Initiated: 00:46 Assessment reference: NA Status: Active Ineffective Coping Date Initiated: 01/10/19 Time Initiated: 00:47 Assessment reference: NA Status: Active Self care deficit Date Initiated: 01/10/19 Time Initiated: 00:47 Assessment reference: NA Status: Active Nutrition More than Body requirement Date Initiated: 01/10/19 Time Initiated: 00:48 Assessment reference: NA Status: Active Treatment assets and liabiliti Patient Assests: cooperative, educated, ADL independent, cognitively intact Patient Liabilities: physical pain, medical problems - Milieu Protocol Maintain good personal hygiene: daily Encourage regular showers, daily Remind patient to perform daily oral care, daily Assist patient to perform ADL's Maintain personal safety: every other day Educate patient to report safety concerns to staff, every other day Monitor environment for contraband/sharps Medication safety: Monitor for expected outcome, potential side effects: every other day, Assess barriers to learning: every other day, Assess readiness for medication education: every other day Discharge/Continuing Care - Education Needs Education Needs: Patient Medication, Patient Diagnosis/Disease Process, Patient Coping Skills, Patient Anger Management skills, Patient Placement options, Patient Community resources, Patient Activities of Daily Living, Patient Pain, Patient Nutrition, Patient Health Practices/Safety, Patient Personal Hygiene/Grooming, Patient Aftercare Safety Plan - Discharge Discharge Criteria: Tolerates medication w/o severe side effects, Free of Suicidal thoughts, Free of Homicidal thoughts, Free of paranoid thoughts, Free of agitation, Normal sleep pattern, Ability to care for self <Mary Ellen Connelly - Last Filed: 01/10/19 16:07> - Diagnosis (1) Schizoaffective disorder Status: Acute Interventions: 01/10/19 16:07 Psychoeducation/psychotherapy Psychopharmacology/adjustment of medications as needed/ monitoring possible side effects Evaluate pt on daily basis Compliance with medications and follow up appointments Long acting medication if pt is noncompliant with pill form Suicide and homicide risk assessment and prevention, coping strategies, safety plan Relapse prevention Reduction of symptoms Improve functional status Possible assertive community treatment Cognitive behavioral therapy Family involvement Possible social skill training as outpatient <Shital England Y - Last Filed: 01/11/19 16:05> Family Contact Family involvement: Famliy/SO not involved - Outside Agency [facility] Care involvment: Information-sharing Agency contact name: [facility]
[2019-01-10] MEDS ORDERED: Docusate-Senna 50 mg-8.6 mg Tab PO PRN (03:13)
[2019-01-10] MEDS ORDERED: Magnesium Hydroxide Susp 30 ml UD PO PRN (03:13)
[2019-01-10] MEDS ORDERED: Alum-Mag Hydrox-Simethicone Susp (30 mL) PO PRN (03:13)
[2019-01-10] MEDS: Cholecalciferol 1,000 INTLU TAB PO SCH (10:00)
[2019-01-10] MEDS: Calcium-Vit D 250 mg-125 Units Tab UD PO SCH (10:01)
[2019-01-10] MEDS: Multivitamin With Minerals Tab PO SCH (10:02)
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
[2019-01-10] MEDS ORDERED: Dextrose 50% SYRINGE Inj (50 ml) IV PRN (12:27)
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
[2019-01-10] MEDS ORDERED: Silver Sulfadiazine 1% Cream (25 gm) TP SCH (16:00)
[2019-01-10] MEDS: Insulin Lispro (humaLOG) LOW Coverage SC SCH ×2 (17:04→23:13)
[2019-01-10] MEDS: Silver Sulfadiazine 1% Cream (25 gm) TP SCH (17:06)
[2019-01-11 07:08] VITALS: RESP 20
[2019-01-11] MEDS: Calcium-Vit D 250 mg-125 Units Tab UD PO SCH (09:32)
[2019-01-11] MEDS: Cholecalciferol 1,000 INTLU TAB PO SCH (09:33)
[2019-01-11] MEDS: Insulin Lispro (humaLOG) LOW Coverage SC SCH ×4 (09:37→22:38)
[2019-01-11] MEDS: Multivitamin With Minerals Tab PO SCH (09:38)
[2019-01-11] MEDS: Silver Sulfadiazine 1% Cream (25 gm) TP SCH ×2 (09:38→17:28)
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
[2019-01-12] MEDS: Calcium-Vit D 250 mg-125 Units Tab UD PO SCH (09:42)
[2019-01-12] MEDS: Cholecalciferol 1,000 INTLU TAB PO SCH (09:44)
[2019-01-12] MEDS: Multivitamin With Minerals Tab PO SCH (09:45)
[2019-01-12] MEDS: Insulin Lispro (humaLOG) LOW Coverage SC SCH ×4 (09:46→22:11)
[2019-01-12] MEDS: Silver Sulfadiazine 1% Cream (25 gm) TP SCH ×2 (09:48→16:48)
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
[2019-01-13 07:05] VITALS: BP 121/73; PULSE 77; TEMP 98.1
[2019-01-13] MEDS: Multivitamin With Minerals Tab PO SCH (08:46)
[2019-01-13] MEDS: Cholecalciferol 1,000 INTLU TAB PO SCH (08:47)
[2019-01-13] MEDS: Calcium-Vit D 250 mg-125 Units Tab UD PO SCH (08:49)
[2019-01-13] MEDS: Insulin Lispro (humaLOG) LOW Coverage SC SCH (08:50)
[2019-01-13] MEDS ORDERED: Alum-Mag Hydrox-Simethicone Susp (30 mL) PO PRN (09:07)
[2019-01-13] MEDS ORDERED: Docusate-Senna 50 mg-8.6 mg Tab PO PRN (09:14)
[2019-01-13] MEDS ORDERED: Magnesium Hydroxide Susp 30 ml UD PO PRN (09:23)
[2019-01-13] MEDS: Silver Sulfadiazine 1% Cream (25 gm) TP SCH (11:39)
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
[2019-01-14] MEDS ORDERED: Cholecalciferol 1,000 INTLU TAB PO SCH (08:00)
[2019-01-14] MEDS ORDERED: Calcium-Vit D 250 mg-125 Units Tab UD PO SCH (08:00)
[2019-01-14] MEDS ORDERED: Multivitamin Therapeutic Tab PO SCH (08:00)
== END 2019-01-13 12:39 | DRG 430 ==
LOC: MERGE 21:12 → PSYC 21:12
PROVIDERS: ADMIT Psychiatry & Neurology Psychiatry; ATTEND Psychiatry & Neurology Psychiatry
DX: F25.9 Schizoaffective disorder, unspecified (principal); E87.2 Acidosis; E11.40 Type 2 diabetes mellitus with diabetic neuropathy, unspecified; R56.9 Unspecified convulsions; F31.9 Bipolar disorder, unspecified; F41.9 Anxiety disorder, unspecified; G47.00 Insomnia, unspecified; E78.5 Hyperlipidemia, unspecified; I10 Essential (primary) hypertension; J45.909 Unspecified asthma, uncomplicated; Z79.4 Long term (current) use of insulin; Z79.899 Other long term (current) drug therapy; Z82.49 Family history of ischemic heart disease and other diseases of the circulatory system; Z98.84 Bariatric surgery status; Z98.891 History of uterine scar from previous surgery; F60.3 Borderline personality disorder